=== PATIENT | female | born 1995 | race Caucasian/White ===

== ENCOUNTER 2021-01-19 07:55 | Inpatient (IN) ==
[2021-01-19] MEDS ORDERED: EPHEDrine 50 MG/ML VIAL IVP PRN (08:00)
[2021-01-19] MEDS ORDERED: Metoclopramide 10 MG/2 ML VIAL IVP PRN (08:02)
[2021-01-19] MEDS ORDERED: Famotidine 20 MG/2 ML VIAL IVP PRN (08:02)
[2021-01-19] MEDS ORDERED: Naloxone 0.4 MG/ML INJ IVP PRN (08:02)
[2021-01-19] MEDS ORDERED: Azithromycin 500 MG in 0.9 % Sodium Chloride 250 ML IVPB PRN (08:02)
[2021-01-19] MEDS ORDERED: Penicillin G Potassium 5,000,000 UNIT in 0.9 % Sodium Chloride Mini Bag 100 ML IVPB ONE (08:09)
[2021-01-19] MEDS: Ringers Solution, Lactated 1,000 ML IVC SCH ×3 (09:14→22:13)
[2021-01-19 09:41] LABS: Eosinophils % 0.2 %; Hematocrit 35.1 % (35.3-44.9); Hemoglobin 12.4 g/dL (11.5-15.4); Immature Granulocytes % 0.3 % (0-4); Lymphocytes % 15.8 %; Mean Corpuscular HGB Conc 35.3 g/dL (31.6-35.5); Mean Corpuscular Volume 87.8 fL (83.0-100.0); Mean Platelet Volume 10.7 fL (9.4-12.4); Monocytes # 0.4 K/mcL (0.0-1.3); Neutrophils # 4.6 K/mcL (1.6-8.9); Platelet Count 151 K/mcL (140-400); Red Cell Distribution Width 12.4 % (11.5-14.5); Segmented Neutrophils % 76.7 %
[2021-01-19 09:50] LABS: Amphetamine Screen,Urine Negative ng/mL (Cutoff=1000); Barbiturate Screen,Urine Negative ng/mL (Cutoff=200); Benzodiazepines Screen,Urine Negative ng/mL (Cutoff=200); Cannabinoid Screen,Urine Negative ng/mL (Cutoff = 50); Cocaine Screen,Urine Negative ng/mL (Cutoff= 300); Opiate Screen,Urine Negative ng/mL (Cutoff=300); Phencyclidine Screen,Urine Negative ng/mL (Cutoff=25)
[2021-01-19] MEDS ORDERED: miSOPROStoL 25 MCG TABLET PO PRN (10:01)
[2021-01-19] MEDS: Ondansetron 4 MG/2 ML VIAL IVP PRN (13:09)
[2021-01-19] MEDS: Penicillin G Potassium 2,500,000 UNIT/105 ML MLS IVPB SCH ×3 (13:44→22:00)
[2021-01-19] MEDS ORDERED: Oxytocin 20 units/ LR 1000 mL 20 UNIT/1,000 ML BAG IVC SCH (14:45)
[2021-01-19] MEDS: *HR* Nalbuphine 10 MG/ML AMPUL IV PRN ×2 (15:15→17:45)
[2021-01-19] MEDS: Epidural Premix (fent/bupiv) 110 ML EP SCH (19:22)
[2021-01-19] MEDS ORDERED: Famotidine 20 MG/2 ML VIAL IVP ONE (21:41)
[2021-01-20] MEDS: Epidural Premix (fent/bupiv) 110 ML EP SCH ×2 (00:28→06:11)
[2021-01-20] MEDS: Penicillin G Potassium 2,500,000 UNIT/105 ML MLS IVPB SCH (02:00)
[2021-01-20] MEDS ORDERED: *HR* FentaNYL (PF) 100 MCG/2 ML VIAL ONE ×3 (04:05→07:53)
[2021-01-20] MEDS: Ondansetron 4 MG/2 ML VIAL IVP PRN (05:17)
[2021-01-20] MEDS ORDERED: Ropivacaine/PF 0.2% 20 ML VIAL ONE (07:53)
[2021-01-20] MEDS ORDERED: Lanolin 7 G OINT...G. TP PRN (10:06)
[2021-01-20] MEDS ORDERED: Benzocaine/Menthol 56 GM AEROSOL SPRAY TP PRN (10:06)
[2021-01-20] MEDS ORDERED: Acetaminophen 325 MG TABLET PO PRN (10:06)
[2021-01-20] MEDS ORDERED: Oxytocin 20 units/ LR 1000 mL 20 UNIT/1,000 ML BAG IVC SCH (10:06)
[2021-01-20] MEDS ORDERED: *HR* FentaNYL (PF) 250 MCG/5 ML VIAL ONE (10:58)
[2021-01-20] MEDS: Ibuprofen 600 MG TABLET PO PRN (11:20)
[2021-01-20] MEDS ORDERED: *HR* Enoxaparin 60 MG/0.6 ML SYRINGE SQ SCH (19:00)
[2021-01-21] MEDS: Ibuprofen 600 MG TABLET PO PRN ×2 (01:14→08:28)
[2021-01-21 07:02] VITALS: O2SAT 97
[2021-01-21 07:43] VITALS: BP 128/76; PULSE 86; TEMP 97.5
[2021-01-21 07:52] LABS: Eosinophils % 0.3 %; Hematocrit 31.2 % (35.3-44.9); Immature Granulocytes % 0.3 % (0-4); Lymphocytes # 1.6 K/mcL (0.6-4.6); Lymphocytes % 25.4 %; Mean Corpuscular HGB Conc 33.7 g/dL (31.6-35.5); Mean Corpuscular Hemoglobin 30.6 pg (28.0-33.3); Mean Platelet Volume 10.6 fL (9.4-12.4); Monocytes # 0.5 K/mcL (0.0-1.3); Monocytes % 8.5 %; Neutrophils # 4.2 K/mcL (1.6-8.9); Platelet Count 127 K/mcL (140-400); Red Blood Count 3.43 M/mcL (3.82-4.97); Red Cell Distribution Width 12.8 % (11.5-14.5); Segmented Neutrophils % 65.5 %; White Blood Count 6.4 K/mcL (4.3-11.1)
[2021-01-21 07:53] LABS: Hemoglobin 10.5 g/dL (11.5-15.4)
[2021-01-21] MEDS ORDERED: Prenatal Vit/FA 1 EACH TABLET PO SCH (09:00)
== END 2021-01-21 10:50 | disposition home or self-care (01) | DRG 807 ==
LOC: 1NENULAB 07:55 → 1NENUOBS 01-20 10:00
PROVIDERS: ADMIT Registered Nurse; ATTEND Registered Nurse